=== PATIENT | male | born 1955 | race Caucasian/White ===

== ENCOUNTER 2021-05-02 08:41 | Outpatient (CLI) | payer MEDICARE, BC | END 2021-05-02 08:42 | disposition home or self-care (01) | LOC: CSHCT 08:41 | PROVIDERS: ATTEND Internal Medicine Hematology & Oncology | DX: C34.01 Malignant neoplasm of right main bronchus (principal) | CPT/HCPCS: 71260; 82565 ==

== ENCOUNTER 2021-10-16 09:24 | Outpatient (CLI) | payer MEDICARE, BC ==
[~2021-10-16 09:24] MED LIST: Iopamidol 300 61% 100 ML VIAL FS ONE
== END 2021-10-16 09:25 | disposition home or self-care (01) ==
LOC: CSHCT 09:24
PROVIDERS: ATTEND Internal Medicine Hematology & Oncology
DX: C34.01 Malignant neoplasm of right main bronchus (principal)
CPT/HCPCS: 71260; 82565

== ENCOUNTER 2022-01-10 10:04 | Outpatient (CLI) | payer MEDICARE, BC ==
[2022-01-10] MEDS ORDERED: Iopamidol 370 76% 100 ML VIAL ONE (13:27)
== END 2022-01-10 10:05 | disposition home or self-care (01) ==
LOC: CSHCT 10:04
PROVIDERS: ATTEND Internal Medicine Hematology & Oncology
DX: C34.01 Malignant neoplasm of right main bronchus (principal)
CPT/HCPCS: 71260; 82565; Q9967

== ENCOUNTER 2022-06-28 08:33 | Outpatient (CLI) | payer MEDICARE, BC ==
[2022-06-28] MEDS ORDERED: Iopamidol 300 61% 100 ML VIAL FS ONE (10:18)
== END 2022-06-28 08:34 | disposition home or self-care (01) ==
LOC: CSHCT 08:33
PROVIDERS: ATTEND Internal Medicine Hematology & Oncology
DX: C34.90 Malignant neoplasm of unspecified part of unspecified bronchus or lung (principal)
CPT/HCPCS: 71260; 82565; Q9967

== ENCOUNTER 2023-01-13 08:07 | Outpatient (CLI) | payer MEDICARE, BC | END 2023-01-13 08:08 | disposition home or self-care (01) | LOC: CSHCT 08:07 | PROVIDERS: ATTEND Internal Medicine Hematology & Oncology | DX: C34.90 Malignant neoplasm of unspecified part of unspecified bronchus or lung (principal) | CPT/HCPCS: 71260; 82565 ==

== ENCOUNTER 2023-07-15 07:38 | Outpatient (CLI) | payer MEDICARE ==
[2023-07-15] MEDS ORDERED: Iopamidol 300 61% 100 ML VIAL FS ONE (12:43)
== END 2023-07-15 07:39 | disposition home or self-care (01) ==
LOC: CSHCT 07:38
PROVIDERS: ATTEND Internal Medicine Hematology & Oncology
DX: C34.90 Malignant neoplasm of unspecified part of unspecified bronchus or lung (principal)
CPT/HCPCS: 71260; 82565; Q9967

== ENCOUNTER 2024-01-12 08:30 | Outpatient (CLI) | payer MEDICARE ==
[2024-01-12] MEDS ORDERED: Iopamidol 370 76% 100 ML VIAL ONE (11:06)
== END 2024-01-12 08:31 | disposition home or self-care (01) ==
LOC: CSHCT 08:30
PROVIDERS: ATTEND Internal Medicine Hematology & Oncology
DX: C34.90 Malignant neoplasm of unspecified part of unspecified bronchus or lung (principal)
CPT/HCPCS: 71260; 82565; Q9967

== ENCOUNTER 2025-01-10 08:06 | Outpatient (CLI) | payer MEDICARE ==
[2025-01-11 16:28] LABS: Estimated GFR - POC 81.0
== END 2025-01-10 08:07 | disposition home or self-care (01) ==
LOC: CSHCT 08:06
PROVIDERS: ATTEND Internal Medicine Hematology & Oncology
DX: C34.01 Malignant neoplasm of right main bronchus (principal); F17.211 Nicotine dependence, cigarettes, in remission
CPT/HCPCS: 71260; 82565